=== PATIENT | male | born 1940 | race Caucasian/White ===

== ENCOUNTER 2016-10-23 04:28 | Inpatient (IN) | payer MEDICARE, MEDICAID ==
[~2016-10-23 04:28] MED LIST: ADVAIR 5001 DISK W/D; ADVAIR 5001 DISK W/D PO; ADVAIR 50028 BLISTER; AMLODIPINE BESYLATE; ASPIR 8181 M1 PO; ASPIR-MOX 325325 MG; ASPIRIN ENTERI325 MG PO; ASPIRIN325 MG; CIPRO500 M1 PO; COLACE100 MG PO; CULTURELLE1 CA1 PO; DALIRESP500 MCG PO; HYDROCODONE/APA1 CAP PO; LIPITOR20 MG; LISINOPRIL5 MG PO; LORCET HD CAPSU1 CAP; MUCINEX600 MG; MUCINEX600 MG PO; NEOSPORIN OINTM15 GM TP; NEXIUM40 MG PO; NITROGLYCERIN0.4 MG SL; NORVASC2.5 MG PO; OXYGEN; PLAQUENIL200 M1 PO; PLAQUENIL200 MG; PRAVACHOL40 MG PO; PREDNISONE10 M1 PO; PREDNISONE5 MG; PRENATAL VITAMI1 TAB; PRENATAL1 TAB; PRENATAL1 TAB PO; SPIRIVA18 MCG; SPIRIVA18 MCG INH; SYNTHROID88 MC1 PO; XOPENEX HFA15 GM; XOPENEX HFA15 GM IH; ZEBETA5 MG PO; ZESTRIL2.5 MG; [UNRECOGNIZED DRUG - OTHER] SL
[2016-10-23 05:06] LABS: BASO % 0.4 % (0-2); EOS % 0.4 % (0-7); HCT-HEMATOCRIT 36.4 % (36.0-53.5); HGB-HEMOGLOBIN 11.7 gm/dl (13.5-17.0); IMMATURE GRANULOCYTES ABSOLUTE 0.03 tho/cmm (0-0.03); IMMATURE GRANULOCYTES PERCENT 0.3 % (0-0.3); LYMPH % 6.4 % (20-45); LYMPH ABSOLUTE COUNT 0.7 tho/cmm (0.8-4.5); MCH (MEAN CORPUSCULAR HGB) 30.4 pg (28.0-32.0); MCHC MEAN CORPUSCULAR HGB CONC 32.1 % (32.0-36.0); MCV (MEAN CELL VOLUME) 94.5 fl (82.0-96.0); MONO % 9.2 % (0-12); NEUTROPHIL ABSOLUTE COUNT 9.1 tho/cmm (1.6-8.0); NEUTROPHIL-AUTOMATED 9.1 tho/cmm (1.6-8.0); NEUTROPHILS % 83.3 % (40-80); PLATELET COUNT 168 tho/cmm (150-450); RED BLOOD COUNT 3.85 mil/cmm (4.40-5.70); RED CELL DISTRIBUTION WIDTH 12.4 % (12.4-16.4); WHITE BLOOD COUNT 10.9 tho/cmm (4.0-10.0)
[2016-10-23 05:17] LABS: URINE BILIRUBIN NEGATIVE (NEG); URINE BLOOD MODERATE (NEG); URINE GLUCOSE (UA) NEGATIVE (NEG); URINE KETONE MODERATE (NEG); URINE LEUKOCYTE ESTERASE POSITIVE (NEG); URINE NITRITE NEGATIVE (NEG); URINE PROTEIN LARGE (NEG); URINE SPECIFIC GRAVITY 1.025 (1.003-1.030)
[2016-10-23] MEDS ORDERED: FOSAMAX70 M1 PO (05:18)
[2016-10-23] MEDS ORDERED: XANAX0.5 M1 PO (05:19)
[2016-10-23 05:21] LABS: ARTERIAL BLD GAS O2 SATURATION 96 % (95-98); ARTERIAL PO2 83 mmHg (70-100); BICARBONATE 45 mmol/L (21-28); BLOOD GAS BASE EXCESS 14 mM/L (-/+3); PH 7.27 Units (7.35-7.45)
[2016-10-23] MEDS ORDERED: BREO ELLIPTA 21 EACH INH (05:21)
[2016-10-23] MEDS ORDERED: CULTURELLE1 EAC1 PO (05:22)
[2016-10-23] MEDS ORDERED: INCRUSE ELLI62.5 MCG INH (05:23)
[2016-10-23 05:24] LABS: ARTERIAL BLOOD GAS PCO2 101 mmHg (32-45)
[2016-10-23] MEDS ORDERED: LINZESS290 MC1 PO (05:24)
[2016-10-23 05:25] LABS: ABG CO2 ARTERIAL 48 mmol/L (21-27)
[2016-10-23] MEDS ORDERED: COZAAR50 M1 PO ×2 (05:25→05:26)
[2016-10-23 05:27] LABS: URINE APPEARANCE CLOUDY; URINE COLOR DARK YELLOW
[2016-10-23] MEDS ORDERED: MELATONIN5 M5 PO (05:27)
[2016-10-23] MEDS ORDERED: MUCINEX600 M1 PO (05:28)
[2016-10-23 05:29] LABS: URINE EPITHELIAL CELLS 0 /[HPF] (0-10); URINE RBC 0-2 /[HPF] (0-5)
[2016-10-23 05:31] LABS: ALB/GLOB RATIO 1.3 (0.8-2.0); ALBUMIN 3.7 g/dl (3.5-5.0); ALKALINE PHOSPHATASE 97 U/L (33-138); ALT/SGPT 39 U/L (12-78); ANION GAP 6 mmol/L (0-20); AST/SGOT 37 U/L (10-40); BILIRUBIN,TOTAL 1.1 mg/dl (0.0-1.5); BLOOD UREA NITROGEN 19 mg/dl (6-24); CALCIUM 8.8 mg/dl (8.5-10.5); CHLORIDE 82 mmol/l (96-110); CREATININE 0.93 mg/dl (0.60-1.30); GLUCOSE 96 mg/dL (70-110); MAGNESIUM 1.8 mg/dl (1.3-2.6); POTASSIUM 5.4 mmol/L (3.7-5.1); SODIUM 126 mmol/L (135-145); eGFR VALUE FOR BLACK >90 mL/Min
[2016-10-23] MEDS ORDERED: CENTRAL-VITE1 EAC1 PO (05:32)
[2016-10-23] MEDS ORDERED: ACIPHEX20 M1 PO (05:33)
[2016-10-23] MEDS ORDERED: STOOL SOFTENER240 M1 PO (05:34)
[2016-10-23] MEDS ORDERED: VITAMIN D35000 UNI3 PO (05:34)
[2016-10-23 05:36] LABS: TSH-THYROID STIMULATING HORM. 3.13 uIU/ml (0.40-3.80)
[2016-10-23 05:39] LABS: CARBON DIOXIDE-VENOUS 43 mmol/L (22-32)
[2016-10-23] MEDS ORDERED: PRAVACHOL40 M1 PO (05:43)
[2016-10-23 06:00] LABS: PROCALCITONIN 0.06 ng/ml (0.05-0.09)
[2016-10-23 06:40] LABS: ARTERIAL BLD GAS O2 SATURATION 91 % (95-98); BICARBONATE 44 mmol/L (21-28); BLOOD GAS BASE EXCESS 14 mM/L (-/+3); PH 7.27 Units (7.35-7.45)
[2016-10-23 06:41] LABS: ARTERIAL PO2 66 mmHg (70-100)
[2016-10-23 06:43] LABS: ABG CO2 ARTERIAL 48 mmol/L (21-27); ARTERIAL BLOOD GAS PCO2 100 mmHg (32-45)
[2016-10-23 08:01] LABS: INR 1.1 INR (0.9-1.1); PROTHROMBIN TIME 13.2 SECONDS (9.0-13.6)
[2016-10-23 08:11] LABS: C-REACTIVE PROTEIN 3.7 mg/dl (0-0.9)
[2016-10-23 08:52] LABS: ARTERIAL BLD GAS O2 SATURATION 98 % (95-98); ARTERIAL PO2 102 mmHg (70-100); BICARBONATE 45 mmol/L (21-28); BLOOD GAS BASE EXCESS 16 mM/L (-/+3); PH 7.37 Units (7.35-7.45)
[2016-10-23 08:54] LABS: ABG CO2 ARTERIAL 47 mmol/L (21-27); ARTERIAL BLOOD GAS PCO2 80 mmHg (32-45)
[2016-10-23 09:57] LABS: ARTERIAL BLD GAS O2 SATURATION 97 % (95-98); BICARBONATE 47 mmol/L (21-28); BLOOD GAS BASE EXCESS 18 mM/L (-/+3); PH 7.37 Units (7.35-7.45)
[2016-10-23 10:08] LABS: ARTERIAL PO2 90 mmHg (70-100)
[2016-10-23 10:25] LABS: ABG CO2 ARTERIAL 49 mmol/L (21-27); ARTERIAL BLOOD GAS PCO2 83 mmHg (32-45)
[2016-10-23 11:15] LABS: ARTERIAL BLD GAS O2 SATURATION 99 % (95-98); ARTERIAL PO2 110 mmHg (70-100); BICARBONATE 48 mmol/L (21-28); BLOOD GAS BASE EXCESS 20 mM/L (-/+3); PH 7.41 Units (7.35-7.45)
[2016-10-23 11:17] LABS: ABG CO2 ARTERIAL 50 mmol/L (21-27); ARTERIAL BLOOD GAS PCO2 78 mmHg (32-45)
[2016-10-23 15:32] LABS: BLOOD UREA NITROGEN 20 mg/dl (6-24); CALCIUM 8.7 mg/dl (8.5-10.5); CHLORIDE 81 mmol/l (96-110); SODIUM 130 mmol/L (135-145); eGFR VALUE FOR BLACK 69 mL/Min
[2016-10-23 16:23] LABS: ANION GAP 8 mmol/L (0-20); GLUCOSE 199 mg/dL (70-110); POTASSIUM 4.3 mmol/L (3.7-5.1)
[2016-10-23 16:25] LABS: CARBON DIOXIDE-VENOUS >45 mmol/L (22-32)
[2016-10-24 05:08] LABS: HCT-HEMATOCRIT 32.8 % (36.0-53.5); HGB-HEMOGLOBIN 10.6 gm/dl (13.5-17.0); IMMATURE GRANULOCYTES ABSOLUTE 0.02 tho/cmm (0-0.03); IMMATURE GRANULOCYTES PERCENT 0.2 % (0-0.3); LYMPH % 2.7 % (20-45); LYMPH ABSOLUTE COUNT 0.2 tho/cmm (0.8-4.5); MCH (MEAN CORPUSCULAR HGB) 30.3 pg (28.0-32.0); MCHC MEAN CORPUSCULAR HGB CONC 32.3 % (32.0-36.0); MCV (MEAN CELL VOLUME) 93.7 fl (82.0-96.0); MEAN PLATELET VOLUME 9.7 cmc (9.4-12.4); MONO % 7.1 % (0-12); MONOCYTE ABSOLUTE COUNT 0.6 tho/cmm (0.0-1.2); NEUTROPHIL ABSOLUTE COUNT 7.3 tho/cmm (1.6-8.0); NEUTROPHIL-AUTOMATED 7.3 tho/cmm (1.6-8.0); PLATELET COUNT 134 tho/cmm (150-450); RED CELL DISTRIBUTION WIDTH 12.4 % (12.4-16.4); WHITE BLOOD COUNT 8.1 tho/cmm (4.0-10.0)
[2016-10-24 05:17] LABS: BLOOD UREA NITROGEN 21 mg/dl (6-24); CALCIUM 8.5 mg/dl (8.5-10.5); CHLORIDE 83 mmol/l (96-110); CREATININE 1.26 mg/dl (0.60-1.30); GLUCOSE 107 mg/dL (70-110); SODIUM 134 mmol/L (135-145); eGFR VALUE FOR BLACK 65 mL/Min
[2016-10-24 06:01] LABS: MAGNESIUM 1.9 mg/dl (1.3-2.6); POTASSIUM 4.6 mmol/L (3.7-5.1)
[2016-10-24 06:06] LABS: ANION GAP 14 mmol/L (0-20)
[2016-10-24 06:09] LABS: CARBON DIOXIDE-VENOUS 42 mmol/L (22-32)
[2016-10-25 07:06] LABS: HGB-HEMOGLOBIN 10.8 gm/dl (13.5-17.0); PLATELET COUNT 130 tho/cmm (150-450)
[2016-10-25 08:15] LABS: ANION GAP 10 mmol/L (0-20); BLOOD UREA NITROGEN 19 mg/dl (6-24); CALCIUM 8.3 mg/dl (8.5-10.5); CHLORIDE 83 mmol/l (96-110); GLUCOSE 113 mg/dL (70-110); POTASSIUM 4.1 mmol/L (3.7-5.1); SODIUM 133 mmol/L (135-145); eGFR VALUE FOR BLACK 76 mL/Min
[2016-10-25 08:42] LABS: CARBON DIOXIDE-VENOUS 44 mmol/L (22-32)
[2016-10-26 05:06] LABS: BLOOD UREA NITROGEN 23 mg/dl (6-24); CALCIUM 8.4 mg/dl (8.5-10.5); CHLORIDE 87 mmol/l (96-110); CREATININE 1.22 mg/dl (0.60-1.30); GLUCOSE 111 mg/dL (70-110); POTASSIUM 3.5 mmol/L (3.7-5.1); SODIUM 135 mmol/L (135-145); eGFR VALUE FOR BLACK 67 mL/Min
[2016-10-26 06:08] LABS: ANION GAP 6 mmol/L (0-20); CARBON DIOXIDE-VENOUS >45 mmol/L (22-32)
[2016-10-27 05:25] LABS: HCT-HEMATOCRIT 37.5 % (36.0-53.5); IMMATURE GRANULOCYTES ABSOLUTE 0.03 tho/cmm (0-0.03); IMMATURE GRANULOCYTES PERCENT 0.2 % (0-0.3); LYMPH % 1.2 % (20-45); LYMPH ABSOLUTE COUNT 0.2 tho/cmm (0.8-4.5); MCH (MEAN CORPUSCULAR HGB) 30.3 pg (28.0-32.0); MCV (MEAN CELL VOLUME) 94.7 fl (82.0-96.0); MEAN PLATELET VOLUME 9.9 cmc (9.4-12.4); MONO % 7.3 % (0-12); MONOCYTE ABSOLUTE COUNT 0.9 tho/cmm (0.0-1.2); NEUTROPHIL ABSOLUTE COUNT 11.2 tho/cmm (1.6-8.0); NEUTROPHIL-AUTOMATED 11.2 tho/cmm (1.6-8.0); NEUTROPHILS % 91.3 % (40-80); PLATELET COUNT 151 tho/cmm (150-450); RED BLOOD COUNT 3.96 mil/cmm (4.40-5.70); RED CELL DISTRIBUTION WIDTH 12.2 % (12.4-16.4); WHITE BLOOD COUNT 12.3 tho/cmm (4.0-10.0)
[2016-10-27 05:41] LABS: CHLORIDE 88 mmol/l (96-110); POTASSIUM 3.5 mmol/L (3.7-5.1); SODIUM 139 mmol/L (135-145)
[2016-10-27 05:51] LABS: ALB/GLOB RATIO 1.2 (0.8-2.0); ALBUMIN 2.9 g/dl (3.5-5.0); ALKALINE PHOSPHATASE 54 U/L (33-138); ALT/SGPT 42 U/L (12-78); ANION GAP 11 mmol/L (0-20); AST/SGOT 32 U/L (10-40); BILIRUBIN,TOTAL 0.8 mg/dl (0.0-1.5); BLOOD UREA NITROGEN 28 mg/dl (6-24); CALCIUM 8.4 mg/dl (8.5-10.5); CREATININE 1.37 mg/dl (0.60-1.30); GLUCOSE 109 mg/dL (70-110); eGFR VALUE FOR BLACK 58 mL/Min
[2016-10-27 05:52] LABS: CARBON DIOXIDE-VENOUS 44 mmol/L (22-32)
[2016-10-27] MEDS ORDERED: COMBIVENT RESPIM4 G1 INH (11:03)
[2016-10-27] MEDS ORDERED: DULERA 200 MCG/13 G1 INH (11:04)
[2016-10-27] MEDS ORDERED: MORPHINE S20 MG/1 M1 PO (11:08)
[2016-10-27] MEDS ORDERED: TYLENOL325 M2 PO (11:08)
[2016-10-27] MEDS ORDERED: DULCOLAX10 MG PR (11:09)
[2016-10-27] MEDS ORDERED: MILK OF MAGNESIA PO (11:09)
[2016-10-27] MEDS ORDERED: MIRALAX17 G2 PO (11:10)
[2016-10-27] MEDS ORDERED: ATIVAN0.5 M1 SL (11:11)
[2016-10-27] MEDS ORDERED: PREDNISONE10 M1 PO (11:12)
== END 2016-10-27 11:45 | DRG 871 ==
LOC: EDMED 04:28 → EMR2 06:31 → CCU 08:35 → PCUB 10-26 18:45
PROVIDERS: Emergency Medicine; Internal Medicine Interventional Cardiology; Registered Nurse; ADMIT Internal Medicine
DX: A41.9 Sepsis, unspecified organism (principal); J96.22 Acute and chronic respiratory failure with hypercapnia; J96.21 Acute and chronic respiratory failure with hypoxia; I50.33 Acute on chronic diastolic (congestive) heart failure; E46 Unspecified protein-calorie malnutrition; J90 Pleural effusion, not elsewhere classified; E87.1 Hypo-osmolality and hyponatremia; J44.1 Chronic obstructive pulmonary disease with (acute) exacerbation; D69.6 Thrombocytopenia, unspecified; K56.7 Ileus, unspecified; Q21.1 Atrial septal defect; D64.9 Anemia, unspecified; E66.9 Obesity, unspecified; E78.5 Hyperlipidemia, unspecified; E87.6 Hypokalemia; F41.9 Anxiety disorder, unspecified; I10 Essential (primary) hypertension
CPT/HCPCS: J1650; J1940; J1956; J2212; J2270; J2543; J2930; J3370; J7050; P9045; P9612; Q9967